=== PATIENT | female | born 1970 | race Caucasian/White ===

== ENCOUNTER 2025-02-17 11:06 | Emergency (ER) | payer OTHER ==
[~2025-02-17] VITALS: Ht 162.6 cm; Wt 82.0 kg
[2025-02-17] MEDS ORDERED: LATANOPROST2.5 ML OPTH (11:17)
[2025-02-17 11:45] VITALS: BP 165/77
[2025-02-17] MEDS ORDERED: CYCLOBENZAPRINE10 MG PO (11:46)
== END 2025-02-17 11:50 | disposition home or self-care (01) ==
LOC: ED 11:06
DX: S16.1XXA Strain of muscle, fascia and tendon at neck level, initial encounter (principal); M54.50 Low back pain, unspecified; V40.5XXA Car driver injured in collision with pedestrian or animal in traffic accident, initial encounter; Z88.0 Allergy status to penicillin; Z88.5 Allergy status to narcotic agent
CPT/HCPCS: 99283